=== PATIENT | female | born 1975 | race Caucasian/White ===

== ENCOUNTER → 2024-06-29 | Outpatient (CLI) | payer OTHER ==
[2024-06-29 09:18] LABS: BASO # 0.1 10*3/uL (0.0-0.1); BASO % 1.8 % (0.0-1.0); EOS # 0.5 10*3/uL (0.0-0.4); EOS % 7.7 % (1.0-4.0); HEMATOCRIT 36.9 % (37.0-47.0); MEAN CELL VOLUME 92.9 fl (81.0-99.0); MEAN CORPUSCULAR HGB 30.5 pg (27.0-31.0); MEAN CORPUSCULAR HGB CONC 32.8 g/dl (33.0-37.0); MEAN PLATELET VOLUME 9.2 fl (9.6-12.3); MONO # 0.5 10*3/uL (0.1-1.0); MONO % 7.7 % (3.0-9.0); NEUT # 3.4 10*3/uL (2.3-7.9); NEUT % 51.7 % (47.0-73.0); PLATELET COUNT AUTOMATED 300 10*3/uL (130-400); RED BLOOD COUNT 3.97 10*6/uL (4.10-5.10); RED CELL DISTRI WIDTH 13.5 % (0-14.5); WHITE BLOOD COUNT 6.5 10*3/uL (4.8-10.8)
[2024-06-29 09:53] LABS: VITAMIN D, 25-HYDROXY 31.5 ng/mL (30-100)
[2024-06-29 09:57] LABS: ALKALINE PHOSPHATASE 61 U/L (46-116); BUN 14 mg/dl (9-23); CHLORIDE 104 mmol/L (98-107); CHOLESTEROL 177 mg/dL (<200); LDL CHOLESTEROL 85 mg/dL (9-159); POTASSIUM 4.1 mmol/L (3.4-5.1); SGPT/ALT 12 U/L (5-49); TOTAL PROTEIN 7.1 gm/dL (6.0-8.0)
[2024-06-30 05:06] LABS: HBsAG SCREEN Negative (Negative); HCV Ab Non Reactive (Non Reactive); HEP B CORE Ab, IgM Negative (Negative)
[2024-06-30 20:08] LABS: HEPATITIS C QNT HCV Not Detected IU/mL (.)
== END | disposition home or self-care (01) ==
LOC: LAB 08:30
PROVIDERS: ATTEND Registered Nurse
DX: Z13.220 Encounter for screening for lipoid disorders (principal); Z13.1 Encounter for screening for diabetes mellitus; Z11.59 Encounter for screening for other viral diseases; F19.20 Other psychoactive substance dependence, uncomplicated